=== PATIENT | female | born 1970 | race African-American/Black ===

== ENCOUNTER 2021-03-15 14:47 | Outpatient (CLI) | payer OTHER, BC, SELFPAY ==
--- NOTE | 2021-03-16 11:15 | WPDSIXMINUTE ---
Six Minute Walk Procedure Procedure Performed Pulmonary Stress Test (6 min walk) Six Minute Walk This is a 6 minutes walk test. The test was performed and interpreted in accordance with the 2014 ERS/ATS task force guidelines. Findings: The patient's resting room air oxygen saturation measured by pulse oximetry was 98% and her heart rate was 90 bpm. Patient ambulated for 305 meters and oxygen saturation remained 95 to 99%. Heart rate at the end of the study was 55 bpm. The patient did not qualify for supplemental oxygen at rest or with ambulation. The patient developed a paradoxical bradycardia with exercise. There are no prior studies for comparison.
--- NOTE | 2021-03-16 11:17 | WPDPFTINT ---
PFT Procedure Performed PFT Procedure Performed Spirometry with Pre/Post Bronchodilator Plethysmography (Lung Vol) Diffusing Cap (DLCO) Flow Vol Loop PFT Interpretation This is a pulmonary function test with pre and post-bronchodilator spirometry, plethysmography and diffusing capacity. The test was performed and results interpreted in accordance with the 2019 and 2005 ATS/ERS Task Force guidelines respectively using the Global Lung Function Initiative-2012 reference equations. Patient demonstrated good effort and cooperation. Reproducibility criteria were met. The quality of the pre bronchodilator spirometry maneuver was Grade A and post bronchodilator spirometry maneuver was Grade A. Findings: Spirometry: The contour the inspiratory and expiratory flow tracing are normal. The pre bronchodilator FVC is 1.86 L, 63% predicted. The pre bronchodilator FEV1 is 1.50 L, 63% predicted. The FEV1: FVC ratio was 81%. The post bronchodilator FVC is 1.84 L, representing a 1% decrease. The post bronchodilator FEV1 is 1.54 L, representing a 3% increase. Plethysmography: The total lung capacity is 3.56 L, 80% predicted. The functional residual capacity is 1.72 L, 70% predicted. The residual volume is 1.70 L, 106% predicted. Diffusing capacity: The absolute diffusion capacity is 14.5, 69% predicted. The diffusing capacity corrected for alveolar volume is 5.46, 114% predicted. Impression: The spirometry is normal without evidence of an obstructive abnormality. The lung volumes are normal without evidence of and restrictive abnormality. The FVC and FEV1 are moderately decreased without an obstructive or restrictive abnormality. This is an abnormal but nonspecific finding. There is no significant improvement after inhaling a single dose of albuterol. The diffusing capacity is normal. There are no prior studies for comparison
== END 2021-03-15 14:48 | disposition home or self-care (01) ==
PROVIDERS: PCP Nurse Practitioner Family; Visit Provider Nurse Practitioner
DX: J45.909 Unspecified asthma, uncomplicated (principal)
CPT/HCPCS: 94060; 94618; 94726; 94729